=== PATIENT | female | born 1965 | race Caucasian/White ===

== ENCOUNTER 2020-03-30 11:52 | Emergency (ER) | payer SELFPAY ==
[2020-03-30 12:32] VITALS: BP 131/75; PULSE 67
--- NOTE | 2020-03-30 14:11 | EDM.PDOC ---
ED HPI GENERAL MEDICAL PROBLEM - General Chief Complaint: General Stated Complaint: JAW PAIN Time Seen by Provider: 03/30/20 13:59 Source of Information: Reports: Patient, RN, RN Notes Reviewed History Limitations: Reports: No Limitations - History of Present Illness INITIAL COMMENTS - FREE TEXT/NARRATIVE: Patient to ER with complaint of left sided facial nerve pain. States she has had this pain for about 2 years. States she has had CT and MRI but is unsure the diagnose given to her. States she has seen neurology but did not like Dr. Mcdonough. States she is unable to open her jaw at times. Pain is into the left mandaeism, forehead and left nostril. States she tired her husbands Gabapentin and did get relief from that, but he is out of it now. States she takes Tylenol 1500mg b.i.d. with some relief. Denies any health problems. Onset: Gradual Duration: Getting Worse Location: Reports: Generalized Quality: Reports: Ache Severity: Moderate Improves with: Reports: None Worsens with: Reports: None Associated Symptoms: Reports: No Other Symptoms Treatments DIRECTOR [employer] SERVICES: Reports: Other (see below) (Gapabentin. ) Left Face/Facial Pain Score (Numeric/FACES): 8 - Related Data Allergies Allergy/AdvReac Type Severity Reaction Status Date / Time Penicillins Allergy Anaphylactic Verified 03/30/20 12:30 Shock Home Meds: Home Meds Acetaminophen [Tylenol Extra Strength] 1,000 mg PO Q6H 05/30/16 [History] FLUoxetine [PROzac] 20 mg PO DAILY 05/30/16 [History] Past Medical History - Past Health History Medical/Surgical History: Denies Medical/Surgical History HEENT History: Reports: Impaired Vision, Other (See Below) Other HEENT History: facial nerve pain since 2018 Cardiovascular History: Reports: None Respiratory History: Reports: None Gastrointestinal History: Reports: Irritable Bowel Syndrome Genitourinary History: Reports: None ALTERATIONS MANAGER History: Reports: Musculoskeletal History: Reports: Other (See Below) Other Musculoskeletal History: R BUNION Neurological History: Reports: None Psychiatric History: Reports: Depression, Other (See Below) Other Psychiatric History: seasonal affective disorder Endocrine/Metabolic History: Reports: None Hematologic History: Reports: None Immunologic History: Reports: None Oncologic (Cancer) History: Reports: None Dermatologic History: Reports: None - Infectious Disease History Infectious Disease History: Reports: Chicken Pox, Mumps - Past Surgical History Head Surgeries/Procedures: Reports: None Cardiovascular Surgical History: Reports: None Respiratory Surgical History: Reports: None Female Surgical History: Reports: Section Endocrine Surgical History: Reports: None Neurological Surgical History: Reports: None Oncologic Surgical History: Reports: None Dermatological Surgical History: Reports: None Social & Family History - Tobacco Use Smoking Status *Q: Current Every Day Smoker Years of Tobacco use: 35 Packs/Tins Daily: 0.5 ED ROS GENERAL - Review of Systems Review Of Systems: Comprehensive ROS is negative, except as noted in HPI. ED EXAM, GENERAL - Physical Exam Exam: See Below Exam Limited By: No Limitations General Appearance: Alert, WD/WN, No Apparent Distress Eye Exam: Bilateral Eye: EOMI, Normal Inspection, PERRL Ears: Normal External Exam, Normal Canal, Hearing Grossly Normal, Normal TMs Nose: Normal Inspection, Normal Mucosa, No Blood Throat/Mouth: Other (teeth clenched--does not open jaw when talking) Head: Atraumatic, Normocephalic Neck: Normal Inspection, Supple, Non-Tender, Full Range of Motion Respiratory/Chest: No Respiratory Distress, Lungs Clear, Normal Breath Sounds, No Accessory Muscle Use, Chest Non-Tender Cardiovascular: Normal Peripheral Pulses, Regular Rate, Rhythm, No Edema, No Gallop, No JVD, No Murmur, No Rub (Female) Exam: Deferred Rectal (Female) Exam: Deferred Back Exam: Normal Inspection, Full Range of Motion, NT Extremities: Normal Inspection, Normal Range of Motion, Non-Tender, Normal Capillary Refill, No Pedal Edema Neurological: Alert, Oriented, CN II-XII Intact, Normal Cognition, Normal Gait, Normal Reflexes, No Motor/Sensory Deficits Psychiatric: Normal Affect, Normal Mood Skin Exam: Warm, Dry, Intact, Normal Color, No Rash Lymphatic: No Adenopathy Course - Vital Signs Last Recorded V/S: Last Vital Signs Temp 96.7 F L 03/30/20 12:31 Pulse 67 03/30/20 12:31 Resp 18 03/30/20 12:31 BP 131/75 03/30/20 12:31 Pulse Ox 100 03/30/20 12:31 Departure - Departure Time of Disposition: 14:10 Disposition: Home, Self-Care 01 Condition: Fair 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
== END 2020-03-30 14:20 | disposition home or self-care (01) ==
LOC: DL.ED 11:52
DX: G51.9 Disorder of facial nerve, unspecified (principal); F32.9 Major depressive disorder, single episode, unspecified; F17.210 Nicotine dependence, cigarettes, uncomplicated; Z88.0 Allergy status to penicillin; Z79.899 Other long term (current) drug therapy
CPT/HCPCS: 99283